=== PATIENT | female | born 1990 | race Caucasian/White ===

== ENCOUNTER 2022-03-06 12:31 | Inpatient (IN) | payer BC ==
[2022-03-06 13:46] VITALS: BMI 32.9
[2022-03-06] MEDS ORDERED: ONDANSETRON 4 MG/2 ML VIAL IVPUSH PRN (13:50)
[2022-03-06] MEDS ORDERED: CITRIC ACID/SODIUM CITRATE 30 ML UNIT-DOSE CUP PO ONE (14:13)
[2022-03-06] MEDS ORDERED: ELECTROLYTE-148 SOLN 500 ML IV ONE (14:13)
[2022-03-06] MEDS ORDERED: LIDOCAINE HCL/EPINEPHRINE/PF 20 ML VIAL ONE ×2 (14:14→14:39)
[2022-03-06] MEDS ORDERED: ELECTROLYTE-148 SOLN 1,000 ML IV SCH (14:15)
[2022-03-06] MEDS ORDERED: PHENYLEPHRINE HCL 10 MG/1 ML SINGLE DOSE VIAL ONE (14:34)
[2022-03-06] MEDS ORDERED: LIDOCAINE HCL/PF 2% SDV 5ML VIAL ONE (14:39)
[2022-03-06] MEDS ORDERED: OXYTOCIN 10 UNITS/ML VIAL ONE ×2 (14:50→14:53)
[2022-03-06] MEDS ORDERED: ceFAZolin SODIUM 1 GM VIAL ONE (14:53)
[2022-03-06] MEDS ORDERED: morphine SULFATE/PF 1 MG/2 ML (2cc Syringe - QUVA) ONE (14:56)
[2022-03-06 14:57] LABS: OPIATES, URI NEGATIVE (NEGATIVE)
[2022-03-06 14:58] LABS: METHADONE, UR NEGATIVE (NEGATIVE); PHENCYCLIDINE,URINE NEGATIVE (NEGATIVE); URINE BARBITURATES NEGATIVE (NEGATIVE); URINE BENZODIAZEPINES NEGATIVE (NEGATIVE)
[2022-03-06 15:28] LABS: URINE AMPHETAMINES NEGATIVE (NEGATIVE)
[2022-03-06] MEDS ORDERED: ESMOLOL HCL 100,000 MCG/10 ML VIAL ONE (15:29)
[2022-03-06] MEDS ORDERED: ONDANSETRON 4 MG/2 ML VIAL ONE (15:30)
[2022-03-06] MEDS ORDERED: SENNOSIDES/DOCUSATE COMBO (SENNA PLUS) TABLET (UD) PO PRN (15:50)
[2022-03-06] MEDS ORDERED: METHYLERGONOVINE MALEATE 0.2 MG/1 ML AMP IM PRN (15:50)
[2022-03-06] MEDS ORDERED: IBUPROFEN 800 MG/8 ML IJ IVPB ONE (16:03)
[2022-03-06] MEDS: IBUPROFEN 800 MG/8 ML IJ IVPB PRN (16:10)
[2022-03-06] MEDS ORDERED: OXYTOCIN 20 UNITS in 0.9% NS 20 UNIT/1,000 ML INFUS.BAG IV ONE (16:43)
[2022-03-06] MEDS: OXYTOCIN 20 UNITS in 0.9% NS 20 UNIT/1,000 ML INFUS.BAG IV SCH (16:45)
[2022-03-06] MEDS: ACETAMINOPHEN 325 MG TABLET (FP) PO PRN (19:05)
[2022-03-06] MEDS: SIMETHICONE 80 MG TAB.CHEW (FP) PO PRN (20:15)
[2022-03-06] MEDS: ACETAMINOPHEN 1000 MG/100 ML BAG IVPB PRN (22:45)
[2022-03-07] MEDS: IBUPROFEN 800 MG/8 ML IJ IVPB PRN ×2 (00:18→07:52)
[2022-03-07] MEDS: OXYTOCIN 20 UNITS in 0.9% NS 20 UNIT/1,000 ML INFUS.BAG IV SCH (02:06)
[2022-03-07] MEDS: ACETAMINOPHEN 1000 MG/100 ML BAG IVPB PRN ×3 (05:57→21:20)
[2022-03-07] MEDS: PRENATAL VITAMINS W/ FOLIC ACID TABLET (FP) PO SCH (09:12)
[2022-03-07 09:55] LABS: BASO % 0.1 % (0-2.0); EOS % 0.2 % (0-4.5); HEMATOCRIT 33.2 % (32.4-45.2); HEMOGLOBIN 11.6 GM/dL (10.7-15.3); LYMPH % 9.9 % (8-40); MCH 29.3 pg (25.7-33.7); MCHC 34.9 g/dl (32.0-36.0); MEAN CELL VOLUME 83.9 fl (80-96); MONO % 5.2 % (3.8-10.2); NEUT % 84.6 % (42.8-82.8); PLATELET COUNT 225 10^3/uL (134-434); RBC 3.96 M/mm3 (3.60-5.2); RDW 13.1 % (11.6-15.6); WHITE BLOOD COUNT 13.1 K/mm3 (4.0-10.0)
[2022-03-07] MEDS ORDERED: BISACODYL 10 MG SUPP.RECT RC PRN (15:50)
[2022-03-07] MEDS: SIMETHICONE 80 MG TAB.CHEW (FP) PO PRN (19:06)
[2022-03-07] MEDS: IBUPROFEN 600 MG TABLET (FP) PO PRN (19:06)
[2022-03-07] MEDS ORDERED: KETOROLAC TROMETHAMINE 30 MG/1 ML VIAL IVPB ONE (20:57)
[2022-03-08 05:29] VITALS: BP 127/59; PULSE 86; TEMP 98
[2022-03-08] MEDS: IBUPROFEN 600 MG TABLET (FP) PO PRN (05:31)
[2022-03-08] MEDS: PRENATAL VITAMINS W/ FOLIC ACID TABLET (FP) PO SCH (10:27)
[2022-03-08] MEDS: ACETAMINOPHEN 325 MG TABLET (FP) PO PRN (10:27)
== END 2022-03-08 13:45 | disposition home or self-care (01) | DRG 788 ==
LOC: JDEL 12:31 → JLDR 13:05 → J3W 16:49
PROVIDERS: ADMIT Obstetrics & Gynecology; ATTEND Obstetrics & Gynecology
PROC: 10D00Z1 Extraction of Products of Conception, Low, Open Approach (ICD-10-PCS; principal; 2022-03-06)
PROC: 0DNW0ZZ Release Peritoneum, Open Approach (ICD-10-PCS; 2022-03-06)
DX: O34.211 Maternal care for low transverse scar from previous cesarean delivery (principal); N73.6 Female pelvic peritoneal adhesions (postinfective); Z3A.39 39 weeks gestation of pregnancy; Z37.0 Single live birth
CPT/HCPCS: 36415; 80307; 85025; 88307-TC